=== PATIENT | female | born 1970 | race Caucasian/White ===

== ENCOUNTER 2022-01-17 13:26 | Emergency (ER) | payer BC, SELFPAY ==
--- NOTE | 2022-01-17 13:34 | ED.URI ---
HPI - URI/Sore Throat General Chief Complaint: Upper Respiratory Infection Stated Complaint: Sore Throat/Headache Time Seen by Provider: 01/17/22 13:34 Source: patient and RN notes reviewed History of Present Illness HPI Narrative: Patient is a 51-year-old female who presents the urgent care with complaints of a sore throat, runny nose, postnasal drainage and cough. Patient states that she has been tested for COVID several times at work and all are negative. 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 Patient has been taking daily Claritin but she does suffer from bad allergies. Patient states that most of their symptoms have been for the last 10 days with the exception of the sore throat pain for the last 2. Patient denies any fever, nausea or vomiting. No other acute complaints. Distress. Patient aware of the plan of care. Some parts of this dictation were generated by voice recognition software and may contain typographical and/or grammatical inaccuracies. Related Data Allergies Allergy/AdvReac Type Severity Reaction Status Date / Time Penicillins Allergy Itching Verified 01/17/22 13:47 Review of Systems Review of Systems: CONSTITUTIONAL: Denies fever, chills, or sweats. EYES: Denies visual changes, redness, or discharge. ENT: Reports of rhinorrhea, postnasal drainage, congestion and sore throat CARDIOVASCULAR: Denies chest pain, palpitations, or edema. RESPIRATORY: Reports of nonproductive cough without dyspnea GASTROINTESTINAL: Denies abdominal pain, nausea, vomiting, or diarrhea. GENITOURINARY: Denies dysuria or hematuria. SKIN: Denies rash or itching. MUSCULOSKELETAL: Denies back pain, joint pain, or myalgia. NEUROLOGIC: Denies headache, numbness, or weakness. All other systems reviewed are negative, except as documented in HPI. [facility] Past Medical History Medical History (Updated 01/17/22 @ 14:07 by MARTIN Krishnan) Nephrolithiasis Surgical History Surgical History H/O lithotripsy H/O tubal ligation History of urethral stent Hx of cholecystectomy Social History Social History Smoking status: Current every day smoker Gender identity (if verbalized by the patient): Female Comments At the time of my signature, I reviewed and agree with the nursing past medical, surgical, social, and family history. There is no relevant family history pertinent to the patient complaint. Exam Narrative: GENERAL: This is a well-nourished, well-developed patient, in no apparent distress. HEAD: normocephalic, atraumatic. EYES: PERRL. Sclera clear/white. Vision is grossly intact. Bilateral injected conjunctiva EARS: External ears normal, auditory canals clear and without drainage, TMs normal without perforation. Hearing grossly intact. NOSE: External nose normal with no obvious nasal discharge, nares without redness, no rhinorrhea. THROAT: Mucous membranes moist. Moderate erythema noted posterior pharynx with moderate postnasal drainage and exudate NECK: Neck supple, non-tender without lymphadenopathy CARDIOVASCULAR: Regular rate and rhythm without murmurs, gallops, or rubs. RESPIRATORY: Dry harsh cough noted on exam. Clear to auscultation. Breath sounds equal bilaterally. No wheezes, rales, or rhonchi. SKIN: warm, intact with no suspicious lesions or rash, good texture and turgor. NEURO: awake, alert, and oriented to person, place and time. There were no obvious focal neurologic abnormalities. EXTREMITIES: No clubbing, cyanosis, or edema. Course Course Level of Care: Express Care Visit Vital Signs Vital signs: Vital Signs Temperature 98.4 F 01/17/22 13:38 Pulse Rate 90 01/17/22 13:38 Respiratory Rate 16 01/17/22 13:38 Blood Pressure 150/77 H 01/17/22 13:38 Pulse Oximetry 99 01/17/22 13:38 Oxygen Delivery Room Air 01/17/22 13:38 Temperature 98.4 F 01/17/22
[2022-01-17 13:38] VITALS: BP 150/77; PULSE 90; RESP 16; TEMP 36.9; O2SAT 99
== END 2022-01-17 14:28 | disposition home or self-care (01) ==
PROVIDERS: Emergency Provider Nurse Practitioner Family
DX: J02.9 Acute pharyngitis, unspecified (principal); J30.9 Allergic rhinitis, unspecified; Z20.822 Contact with and (suspected) exposure to COVID-19; F17.290 Nicotine dependence, other tobacco product, uncomplicated
CPT/HCPCS: 87081; 87426; 87880; 99213; C9803; G0463

== ENCOUNTER 2022-08-28 13:50 | Observation (INO) | payer BC, SELFPAY ==
[2022-08-28] VITALS (16 sets, daily range): BP systolic 133–183; BP diastolic 72–104; PULSE 65–97; RESP 18; TEMP 36.1–36.8; O2SAT 93–100
--- NOTE | ~2022-08-28 | CT_ITS ---
EXAMINATION: CT abdomen pelvis wo con DATE: 08/28/2022 15:27 INDICATION: Left-sided flank pain. History of kidney stones. TECHNIQUE: Computed tomography (CT) of the abdomen and pelvis was performed without intravenous contr ast. The dose-length product was 497.90 mGy-cm. Automated exposure control and iterative reconstructi on technique were employed. COMPARISON: CT dated 08/25/2019. FINDINGS: Lung bases are unremarkable. Heart size normal. No significant pleural or pericardial effus ion. There is severe right hydroureteronephrosis with renal cortical thinning. There is moderate left hydroureteronephrosis. There are multiple bilateral renal stones. There is a 4 mm distal right urete ral stone in the pelvis. Air is a 3 mm distal left ureteral stone. Fatty infiltration of the liver. The spleen, pancreas, adrenal glands are unremarkable. There is an a ccessory splenule. Status post cholecystectomy. There are calcified granulomas of the spleen. The talbot creas and adrenal glands are unremarkable. Nonobstructive bowel gas pattern. No free air or free flui d. No significant vascular abnormality. No lymphadenopathy. IMPRESSION: 1. Severe right hydroureteronephrosis with distal ureteral stone measuring 4 mm. Severe right renal c ortical thinning. The 2: Moderate left hydroureteronephrosis with distal left ureteral stone measuring 3 mm. 3: Bilateral nephrolithiasis. Reviewed, dictated and finalized at location A. ATION ENGINEER IMPRESSION: 1. Severe right hydroureteronephrosis with distal ureteral stone measuring 4 mm . Severe right renal cortical thinning. The 2: Moderate left hydroureteronephrosis with distal left ureteral stone measurin g 3 mm. 3: Bilateral nephrolithiasis.
--- NOTE | ~2022-08-28 | XR_ITS ---
EXAMINATION: XR fluoroscopy no charge DATE: 08/29/2022 14:33 INDICATION: Nephrolithiasis for bilateral renal stone extraction TECHNIQUE: 4 fluoroscopic images of the abdomen and pelvis were obtained during procedure performed lita Vieyra. Radiologist was not present for the imaging or procedure. The amount of fluoroscopy grant e used during this procedure was 0.3 minutes. COMPARISON: CT dated 08/28/2022 FINDINGS: Manager Academic image demonstrates cholecystectomy clips in right upper quadrant. The stone seen in the left an d right ureters on prior CT are indiscernible on the renal nurse images. The final 2 images demonstrate a w grady advanced into the left renal pelvis and a catheter and wire advanced into the right ureter. IMPRESSION: 1. Fluoroscopy utilized during urologic procedure. See procedure note for further detail. Reviewed, dictated and finalized at location B. LIFT ATTENDANT IMPRESSION: 1. Fluoroscopy utilized during urologic procedure. See procedure note for furth er detail.
--- NOTE | 2022-08-28 14:36 | ED.GENADULT ---
HPI - General Adult General Chief complaint: Urogenital-Female Stated complaint: flank pain, urinary s/s Time Seen by Provider: 08/28/22 14:24 Source: RN notes reviewed History of Present Illness HPI narrative: Patient presents emergency department from home for possible UTI. Patient states for past 2 days she has been having urinary frequency with minimal urine output states has been associated with left-sided abdominal pain described as cramping in nature that radiates into her left flank she denies having fevers or chills she denies any nausea vomiting diarrhea or any other symptoms states she has a history of frequent kidney stones as well as has a history of a minimally functioning right kidney she is followed by Dr. Murillo for urology Related Data Allergies Allergy/AdvReac Type Severity Reaction Status Date / Time Penicillins Allergy Itching Verified 01/17/22 13:47 Review of Systems Review of Systems: Gen.: Denies fevers or chills ENT: Denies congestion Respiratory: Denies shortness of breath or cough CV: Denies chest pain or palpitations GI: See HPI reports urinary frequency Musculoskeletal: Denies back pain or muscle pain Neuro: Denies numbness, tingling, weakness or focal weakness Skin: Denies rash Except as documented, all other systems reviewed and negative PMFSH Past Medical History Medical History (Updated 08/28/22 @ 16:18 by Stevie Ureña DO) Nephrolithiasis Surgical History Surgical History H/O lithotripsy H/O tubal ligation History of urethral stent Hx of cholecystectomy Social History Social History Smoking status: Current every day smoker Gender identity (if verbalized by the patient): Female Exam Narrative: APPEARANCE: No acute distress, nontoxic, resting in bed HEENT: Normocephalic, atraumatic, OMM RESPIRATORY: No respiratory distress, clear to auscultation bilaterally with no rhonchi wheezing or rales CARDIOVASCULAR: RRR s murmur ABDOMINAL: Soft nondistended tender to palpation in the left lower quadrant no tenderness in the right lower quadrant, right upper quadrant and left upper quadrant no rebound or guarding MUSCULOSKELETAl: Moves all extremities. No clubbing, cyanosis or edema. NEURO: Awake and alert. Following commands, speech normal, no focal deficits SKIN:: Warm, dry. Normal Color PSYCHIATRIC: Normal affect/mood Course Course Emergency Course: Discussed with Dr. Vieyra for urology. Came to see the patient emergency department at this time request patient be admitted to his service n.p.o. after midnight Discussed with patient and family results of workup and diagnosis. Discussed need for admission. Patient and family understand and agree to current treatment plan Vital Signs Vital signs: Vital Signs Temperature 97.0 F L 08/28/22 13:56 Pulse Rate 97 08/28/22 13:56 Respiratory Rate 18 08/28/22 13:56 Blood Pressure 183/93 H 08/28/22 13:56 Pulse Oximetry 100 08/28/22 13:56 Oxygen Delivery Room Air 08/28/22 13:56 Temperature 97.0 F L 08/28/22 13:56 Pulse Rate 97 08/28/22 13:56 Respiratory Rate 18 08/28/22 13:56 Blood Pressure 183/93 H 08/28/22 13:56 Pulse Oximetry 100 08/28/22 15:10 Oxygen Delivery Room Air 08/28/22 13:56 Medical Decision Making Vital Signs Vital Signs: Vital Signs Temperature 97.0 F L 08/28/22 13:56 Pulse Rate 97 08/28/22 13:56 Respiratory Rate 18 08/28/22 13:56 Blood Pressure 183/93 H 08/28/22 13:56 Pulse Oximetry 100 08/28/22 13:56 Oxygen Delivery Room Air 08/28/22 13:56 Temperature 97.0 F L 08/28/22 13:56 Pulse Rate 97 08/28/22 13:56 Respiratory Rate 18 08/28/22 13:56 Blood Pressure 183/93 H 08/28/22 13:56 Pulse Oximetry 100 08/28/22 15:10 Oxygen Delivery Room Air 08/28/22 13:56 Lab Data Lab results reviewed: Yes I reviewed the patien
[2022-08-28 15:01] LABS: Basophils Absolute Auto 0.1 K/mm3 (0.0-0.1); Basophils Percent Auto 0.8 % (0.2-1.2); Eosinophils Absolute Auto 0.2 K/mm3 (0-0.3); Eosinophils Percent Auto 1.5 % (0-4.4); Hematocrit 44.3 % (37.0-47.0); Immature Granulocyte Absolute 0.04 K/mm3 (0.00-0.031); Immature Granulocyte Percent A 0.4 % (0-0.5); Lymphocytes Absolute Auto 3.25 K/mm3 (0.9-3.2); Lymphocytes Percent Auto 33.3 % (18.3-44.2); Mean Corpuscular HGB Conc 33.9 g/dl (32-36); Mean Corpuscular Hemoglobin 30.8 pg (26-34); Mean Platelet Volume 10.4 fl (7.4-10.4); Monocytes Absolute Auto 0.8 K/mm3 (0.1-0.6); Monocytes Percent Auto 8.1 % (2.6-8.5); Neutrophils Absolute Auto 5.5 K/mm3 (1.3-6.7); Neutrophils Percent Auto 55.9 % (45.5-73.1); Platelet Count Result 317 k/mm3 (150-375); Red Blood Count 4.87 M/mm3 (4.2-5.4); Red Cell Distribution Width 13.2 % (11.5-14.5); White Blood Count 9.8 K/mm3 (4.5-10.0)
[2022-08-28 15:02] LABS: Appearance Urine Clear (Clear); Bilirubin Urine Negative (Negative); Blood Urine Trace-intact (Negative); Color Urine Yellow (Yellow); Glucose Urine UA Negative (Negative); Ketones Urine Negative (Negative); Leukocyte Esterase Ur Negative LEU/UL (Negative); Nitrate Urine Negative (Negative); Protein Urine Negative (Negative); Specific Grav Ur 1.025 (1.001-1.035); Urobilinogen Urine 0.2 mg/dL (<2.0); pH Urine 5.5 (5.0-9.0)
[2022-08-28 15:07] LABS: Mucus Urine Few /lpf; RBC Urine 0-2 /hpf (0-2); Squamous Epithelial Cell Urine Few /hpf (Few)
[2022-08-28] MEDS: SODIUM CHLORIDE 0.9% IV 1,000 ML 999 ML IV CONT (15:07)
[2022-08-28 15:09] LABS: Alanine Aminotransferase 43 U/L (6-35); Albumin Level 4.5 g/dL (3.5-5.1); Alkaline Phosphatase 112 U/L (38-126); Anion Gap 7 mmol/L (8-16); Aspartate Amino Transferase 30 U/L (14-36); Bilirubin,Total 0.7 mg/dL (0.2-1.3); Blood Urea Nitrogen 15 mg/dL (7-17); Calcium 9.5 mg/dL (8.4-10.2); Carbon Dioxide 27 mmol/L (22-30); Chloride 108 mmol/L (98-107); Estimated CRCL calculation 62 ml/min; Estimated Glomerular Filt Rate 59; Glucose 96 mg/dL (65-110); Potassium 3.6 mmol/L (3.4-5.0); Sodium 142 mmol/L (137-145)
[2022-08-28 15:19] LABS: Add Urine Microscopic? YES
--- NOTE | 2022-08-28 16:23 | PM.IMHP ---
H&P: HPI History of Present Illness Date/Time: 08/28/22 16:23 Chief Complaint: Bilateral flank and abdominal pain Narrative: pleasant woman is well known to me with a long history of recurrent urolithiasis. She has a known chronically hydronephrotic, minimally functioning right kidney. She presents with abdominal discomfort and nausea. She has had no fevers chills or gross hematuria. Imaging demonstrates a single small ureteral stone obstructing both distal ureters. Her serum creatinine is 1.0. She will be admitted for supportive care overnight and endoscopic extraction of stones tomorrow. She is aware the risk of this procedure including, but not limited to, adverse cardiopulmonary events, ureteral injury, need for stent placement and hematuria. Review of Systems Cardiovascular: Cardiovascular: Denies chest pain, Denies lightheadedness, Denies palpitations and Denies dyspnea Respiratory: Respiratory: Denies dyspnea Gastrointestinal: Gastrointestinal: Denies diarrhea, Denies nausea and Denies vomiting Genitourinary: Genitourinary: Denies hematuria and Denies dysuria Endocrine: Endocrine: Denies palpitations [facility] Past Medical History Medical History (Updated 08/28/22 @ 16:25 by Yordy Vieyra MD) Nephrolithiasis Surgical History Surgical History H/O lithotripsy H/O tubal ligation History of urethral stent Hx of cholecystectomy Social History Social History Smoking status: Current every day smoker Gender identity (if verbalized by the patient): Female Meds Home Medications and Allergies Home Medications Medication Instructions Recorded Confirmed Type prednisone 10 mg tablet See Rx Instructions .Route 01/17/22 Rx .COMPLEX #30 tabs Allergies Allergy/AdvReac Type Severity Reaction Status Date / Time Penicillins Allergy Itching Verified 01/17/22 13:47 Vital Signs Vital Signs - 24 hr 08/28/22 13:56 08/28/22 15:10 Temperature 97.0 F L Pulse Rate 97 Respiratory Rate 18 Blood Pressure 183/93 H Pulse Oximetry 100 100 Oxygen Delivery Room Air Exam Const: General: no acute distress Resp: Effort & Inspection: normal respiratory effort GI: Inspection: non-distended GI Palp: No abdominal tenderness and No Guarding due to palpation present (GI) Auscultation: normal bowel sounds H&P: Results Labs Labs: Short CBC 08/28/22 Range/Units 14:53 WBC 9.8 (4.5-10.0) K/mm3 Hgb 15.0 (12.0-15.0) g/dL Hct 44.3 (37.0-47.0) % Plt Count 317 (150-375) k/mm3 BMP 08/28/22 14:53 Sodium 142 Potassium 3.6 Chloride 108 H Carbon Dioxide 27 BUN 15 Creatinine 1.00 Glucose 96 Calcium 9.5 Liver Function 08/28/22 Range/Units 14:53 Total Bilirubin 0.7 (0.2-1.3) mg/dL AST 30 (14-36) U/L ALT 43 H (6-35) U/L Alkaline Phosphatase 112 (38-126) U/L Albumin 4.5 (3.5-5.1) g/dL Urine 08/28/22 Range/Units 14:53 Urine Color Yellow (Yellow) Urine Appearance Clear (Clear) Urine pH 5.5 (5.0-9.0) Ur Specific [place] 1.025 (1.001-1.035) Urine Protein Negative (Negative) mg/dL Urine Glucose (UA) Negative (Negative) mg/dL Assessment and Plan Assessment and plan (1) Bilateral ureteral calculi: Code(s): N20.1 - Calculus of ureter Status: Acute Assessment and Plan: Admission overnight for hydration analgesics Cystoscopy with bilateral ureteroscopy, bilateral ureteral stent removal with possible laser lithotripsy, was stent placed
[2022-08-28] MEDS: SODIUM CHLORIDE 0.9% IV 1,000 ML 100 ML IV CONT ×2 (16:46→19:38)
[2022-08-28 17:08] LABS: Influenza A QL RT-PCR Negative (Negative); Influenza B QL RT-PCR Negative (Negative); SARS-CoV-2 RNA PCR Negative
--- NOTE | 2022-08-28 18:30 | PC.NURSE ---
PT. IS CURRENTLY ON NPO STATUS, HOWEVER SHE STATES THAT SHE SPOKE WITH DR. DOMINGUEZ AND WAS TOLD SHE WOULD NOT HAVE A PROCEDURE THIS EVENING. PT REFUSED NPO STATUS AND ATE OUTSIDE FOOD BROUGHT IN BY SPOUSE. PT. WAS ADVISED OF THE RISKS OF EATING PRIOR TO PROCEDURES.
[2022-08-28] MEDS: MORPHINE SULFATE (*CRX) 2 MG/ML INJ IV PUSH (20:21)
[2022-08-29] VITALS (9 sets, daily range): BP systolic 95–170; BP diastolic 68–92; PULSE 62–77; RESP 12–20; TEMP 35.7–36.6; O2SAT 92–99
[2022-08-29 05:58] LABS: Basophils Absolute Auto 0.1 K/mm3 (0.0-0.1); Basophils Percent Auto 1.1 % (0.2-1.2); Eosinophils Absolute Auto 0.2 K/mm3 (0-0.3); Hematocrit 37.5 % (37.0-47.0); Hemoglobin 12.6 g/dL (12.0-15.0); Immature Granulocyte Absolute 0.02 K/mm3 (0.00-0.031); Immature Granulocyte Percent A 0.2 % (0-0.5); Lymphocytes Absolute Auto 3.04 K/mm3 (0.9-3.2); Lymphocytes Percent Auto 37.8 % (18.3-44.2); Mean Corpuscular HGB Conc 33.6 g/dl (32-36); Mean Corpuscular Hemoglobin 30.6 pg (26-34); Mean Platelet Volume 10.4 fl (7.4-10.4); Monocytes Absolute Auto 0.6 K/mm3 (0.1-0.6); Monocytes Percent Auto 7.7 % (2.6-8.5); Neutrophils Absolute Auto 4.1 K/mm3 (1.3-6.7); Neutrophils Percent Auto 51.2 % (45.5-73.1); Platelet Count Result 254 k/mm3 (150-375); Red Blood Count 4.12 M/mm3 (4.2-5.4); Red Cell Distribution Width 13.1 % (11.5-14.5); White Blood Count 8.1 K/mm3 (4.5-10.0)
[2022-08-29] MEDS: SODIUM CHLORIDE 0.9% IV 1,000 ML 100 ML IV CONT (05:59)
[2022-08-29] MEDS: MORPHINE SULFATE (*CRX) 2 MG/ML INJ IV PUSH (05:59)
[2022-08-29 06:21] LABS: Alanine Aminotransferase 32 U/L (6-35); Albumin Level 3.4 g/dL (3.5-5.1); Alkaline Phosphatase 96 U/L (38-126); Anion Gap 4 mmol/L (8-16); Aspartate Amino Transferase 24 U/L (14-36); Bilirubin,Total 0.5 mg/dL (0.2-1.3); Blood Urea Nitrogen 17 mg/dL (7-17); Calcium 8.2 mg/dL (8.4-10.2); Carbon Dioxide 23 mmol/L (22-30); Chloride 111 mmol/L (98-107); Estimated CRCL calculation 77 ml/min; Estimated Glomerular Filt Rate > 60; Glucose 97 mg/dL (65-110); Potassium 3.6 mmol/L (3.4-5.0); Sodium 138 mmol/L (137-145)
--- NOTE | 2022-08-29 06:51 | WPDHPUPDATE1 ---
History and Physical Update Update Date/Time: 08/29/22 06:51 History and Physical has been reviewed, including an updated exam of the patient. There are NO changes in the patient's condition. Risks, benefits, and alternatives have been discussed and questions answered. Patient agrees to proceed with procedure.
--- NOTE | 2022-08-29 13:05 | WPDANESEPPF ---
Anes - Initial Pre Proc Eval Procedure: Operation Date: 08/29/22 14:30 Proposed Procedures p Cystoscopy,Bilateral Ureteroscopy, Bilateral Stent Removal,Possible Holmium Laser,Possible Bilateral Stent Placement - Yordy Vieyra MD Date/Time: 08/29/22 13:05 Surgeon: Yordy Vieyra MD Pre Op Diagnosis: bilateral kidney stones Patient Data Age: 52 Gender: F Height: 1.65 m Weight: 80 kg Last Vital Signs Temp 36.1 C L 08/29/22 11:49 Pulse 72 08/29/22 11:49 Resp 18 08/29/22 11:49 BP 142/76 H 08/29/22 11:49 Pulse Ox 98 08/29/22 11:49 O2 Del Method Room Air 08/29/22 11:49 Allergies Allergy/AdvReac Type Severity Reaction Status Date / Time Penicillins Allergy Itching Verified 08/29/22 12:16 Home Medications Medication Instructions Recorded Confirmed Type No Home Medications 08/29/22 08/29/22 History Laboratory Tests 08/28/22 08/28/22 08/28/22 14:53 14:53 14:53 WBC 9.8 K/mm3 K/mm3 (4.5-10.0) RBC 4.87 M/mm3 M/mm3 (4.2-5.4) Hgb 15.0 g/dL g/dL (12.0-15.0) Hct 44.3 % % (37.0-47.0) MCV 91.0 fl fl (80-100) MCH 30.8 pg pg (26-34) MCHC 33.9 g/dl g/dl (32-36) RDW 13.2 % % (11.5-14.5) Plt Count 317 k/mm3 k/mm3 (150-375) MPV 10.4 fl fl (7.4-10.4) Immature Gran % (Auto) 0.4 % % (0-0.5) Neut % (Auto) 55.9 % % (45.5-73.1) Lymph % (Auto) 33.3 % % (18.3-44.2) [place] % (Auto) 8.1 % % (2.6-8.5) Eos % (Auto) 1.5 % % (0-4.4) Baso % (Auto) 0.8 % % (0.2-1.2) Lymph # (Auto) 3.25 K/mm3 H K/mm3 (0.9-3.2) [place] # (Auto) 0.8 K/mm3 H K/mm3 (0.1-0.6) Eos # (Auto) 0.2 K/mm3 K/mm3 (0-0.3) Baso # (Auto) 0.1 K/mm3 K/mm3 (0.0-0.1) Abs Immat Gran (auto) 0.04 K/mm3 H K/mm3 (0.00-0.031) Absolute Neuts (auto) 5.5 K/mm3 K/mm3 (1.3-6.7) Absolute Nucleated RBC 0.0 K/mm3 K/mm3 (0.0-0.012) Nucleated RBC % 0.0 % % (0.0-0.2) Sodium 142 mmol/L mmol/L (137-145) Potassium 3.6 mmol/L mmol/L (3.4-5.0) Chloride 108 mmol/L H mmol/L (98-107) Carbon Dioxide 27 mmol/L mmol/L (22-30) Anion Gap 7 mmol/L L mmol/L (8-16) BUN 15 mg/dL mg/dL (7-17) Creatinine 1.00 mg/dL mg/dL (0.7-1.0) Estim Creat Clear Calc 62 ml/min ml/min Estimated GFR 59 (59 - ) Glucose 96 mg/dL mg/dL (65-110) Calcium 9.5 mg/dL mg/dL (8.4-10.2) Total Bilirubin 0.7 mg/dL mg/dL (0.2-1.3) AST 30 U/L U/L (14-36) ALT 43 U/L H U/L (6-35) Alkaline Phosphatase 112 U/L U/L (38-126) Total Protein 8.0 g/dL g/dL (6.3-8.2) Albumin 4.5 g/dL g/dL (3.5-5.1) Urine Color Yellow (Yellow) Urine Appearance Clear (Clear) Urine pH 5.5 (5.0-9.0) Ur Specific [place] 1.025 (1.001-1.035) Urine Protein Negative mg/dL mg/dL (Negative) Urine Glucose (UA) Negative mg/dL mg/dL (Negative) Urine Ketones Negative mg/dL mg/dL (Negative) Ur Blood (Man) Trace-intact (Negative) Urine Nitrate Negative (Negative) Urine Bilirubin Negative (Negative) Urine Urobilinogen 0.2 mg/dL mg/dL (<2.0) Leukocyte Esterase Rfl Negative [place]/UL [place]/UL (Negative) Urine RBC 0-2 /hpf /hpf (0-2) Urine WBC 4-6 /hpf H /hpf Ur Squamous Epith Cells Few /hpf /hpf (Few) Hyaline Casts 3-4 /lpf H /lpf (None) Urine Mucus Few /lpf H /lpf Influenza A (RT-PCR) Influenza B (RT-PCR) SARS-CoV-2 RNA (RT-PCR) 08/28/22 08/29/22 08/29/22 16:22 05:43 05:43 WBC 8.1 K/mm3 K/mm3 (4.5-10.0) RBC 4.12 M/mm3 L
[2022-08-29] MEDS: ceFAZolin 2 GM/D5W 50 ML 2 GM/50 ML BAG IVPB (13:52)
[2022-08-29] MEDS: LIDOCAINE HCL 2% GEL UROJET 10 ML PKG MUCOUS MEM (14:14)
[2022-08-29] MEDS: KETOROLAC 30 MG/ML VIAL (*BKC) IV PUSH (14:27)
[2022-08-29] MEDS: LACTATED RINGERS 1,000 ML 30 ML IV CONT (14:35)
--- NOTE | 2022-08-29 15:22 | W.PM.PROC2 ---
Procedure Note - Detailed Date of Procedure 08/29/22 Pre-op Diagnosis Bilateral ureteral stones Post-op Diagnosis Same Procedure Performed Cystoscopy, bilateral ureteroscopy with stone extraction Surgeon Yordy Vieyra MD Anesthesia General Description of Procedure Patient is brought to the operative suite receives placed in a dorsal lithotomy position after the uneventful induction of a general anesthetic. Cystoscopy is undertaken the 19 F rigid cystoscope. Bladder mucosa is normal. There was no intravesical foreign body neoplasm. She has a single orthotopic ureteral orifice bilaterally. Endoscopic evaluation of the distal ureters was undertaken similar fashion bilaterally. A 0.035 in glidewire was 1st advanced into the renal pelvis and in the distal ureter was dilated with an 8 F 10 F dilator. Ureteroscopy was undertaken with a short tapered semi-rigid ureteral scope. There is a single small stone in her left distal ureter and several small stones in her right distal ureter. These were all extracted with a 1.9 F disposable escape basket with ease. Opted not to place ureteral stent it is. Scopes and wires removed the patient was taken recovery room good condition. Urine Output 150 Drains No Packing No Pathology None sent Complications No immediate complications Condition Stable
--- NOTE | 2022-08-29 15:50 | PC.NURSE ---
pt returned from surgery via stretcher, doing well, denies pain or discomfort at this time, able to drink water, reviewed new orders and plan of care
--- NOTE | 2022-09-01 16:09 | P.DS_ITS ---
DS: Admitting Diagnosis Discharge Date 08/29/22 Admitting Diagnosis Bilateral ureteral stones DS: Discharge Diagnosis Discharge Diagnosis (1) Bilateral ureteral calculi: Code(s): N20.1 - Calculus of ureter Status: Acute (2) Kidney stone on right side: Code(s): N20.0 - Calculus of kidney Status: Acute DS: Summary Hospital Course Hospital Course: Patient well known to me with recurrent urolithiasis who came to the ER with some abdominal discomfort. Imaging demonstrated 2 small distal ureteral obstructing calculi, 1 in each ureter. Surprisingly, she had good urine output and a creatinine of only 1. It was late in the afternoon set admitted overnight and then proceeded with bilateral ureteroscopy with stone extraction the next day. This was a simple procedure and I did not place a ureteral stent. . Later that afternoon the procedure she was comfortable, tolerating a diet and had good urine output. Time Spent with Patient Time attestation: Total time spent providing and/or coordinating discharge services: Exam Const: General: no acute distress Resp: Effort & Inspection: normal respiratory effort GI: Inspection: non-distended GI Palp: No abdominal tenderness and No Guarding due to palpation present (GI) Auscultation: normal bowel sounds DS: Data Data Completed and Pending Pending studies at discharge: Pending at discharge 08/29/22 14:27 Surgical [PTH] Routine Surgical [PTH] Routine Discharge Plan Discharge Attending physician on discharge: Yordy Vieyra Consulting providers: Mckinley Nelson ; Abad Castaneda ; Elbert Benavides Discharging Clinician: Yordy Vieyra Anticipated Discharge Date/Time: 08/29/22 17:46 Patient Disposition: Home, Self-Care Activity: other - see discharge instructions Diet: other - see discharge instructions Discharge Instructions: 1) Activity: no driving or important decisions x24 hours. 2) Diet: resume your normal, pre-admission diet. 3) Follow-up: 1-2 weeks / call for appointment ([phone]). Patient Instructions: Antibiotic Form Stand Alone Forms: General Discharge Information Follow-up/Referrals: Yordy Vieyra MD [Physician] - Discharge Medications: New hydrocodone-acetaminophen 5-325 mg tablet 1 - 2 tablet PO Q6H PRN (Reason: pain) Qty: 20 0RF sulfamethoxazole-trimethoprim 800-160 mg tablet 1 tablet PO Q12H Qty: 6 0RF Date of admission: 08/28/22 16:15 Primary Care Provider: PHYSICIAN,MARKETING ADMINISTRATIVE ASSISTANT Admitting Provider: Yordy Vieyra Attending physician on admission: Yordy Vieyra Condition: Stable
== END 2022-08-29 18:07 | disposition home or self-care (01) ==
LOC: ANHED 16:18 → ANH3MED 17:27
PROVIDERS: Admitting Provider Urology; Emergency Provider Emergency Medicine; Visit Provider Urology
PROC: (CPT 52352; principal; 2022-08-29 14:30)
DX: N20.1 Calculus of ureter (principal); F17.210 Nicotine dependence, cigarettes, uncomplicated; Z20.822 Contact with and (suspected) exposure to COVID-19
CPT/HCPCS: 52352; 36415; 74176; 80053; 81001; 82365; 85025; 87636; 88300; 96361; 96365; 96374; 96375; 96376; 99199; 99285; C1769; G0378; J0131; J0690; J1100; J1885; J2250; J2270; J2370; J2405; J2704; J3010; J7030; J7120